=== PATIENT | female | born 1960 | race Caucasian/White ===

== ENCOUNTER 2019-03-14 10:55 | Emergency (ER) | payer OTHER ==
[2019-03-14 11:01] VITALS: BP 145/87; PULSE 68; TEMP 97.8; BMI 31.9
[2019-03-14] MEDS ORDERED: DIPHTH,PERTUSS(ACELL),TET 0.5 ML DISP.SYRIN IM ONE ×2 (11:19→11:20)
--- NOTE | 2019-03-14 11:26 | PDOC ---
History of Present Illness - General Chief Complaint: Wound Stated Complaint: RT THUMB INFECTION Time Seen by Provider: 03/14/19 11:10 - History of Present Illness Initial Comments: 03/14/19 11:21 58 y/o holli with a past medical history significant for hypertension presents for evaluation of right thumb swelling and pain 2 days. About 6 days ago she went to get her nails done since that time 2 days after her manicure she developed some swelling in her right thumb. No systemic symptoms Past History - Past Medical History Allergies/Adverse Reactions: Allergies Allergy/AdvReac Type Severity Reaction Status Date / Time No Known Allergies Allergy Verified 03/14/19 11:01 Home Medications: Ambulatory Orders Amlodipine Besylate [Norvasc -] 10 mg PO HS 03/14/19 Cephalexin [Keflex] 500 mg PO QID #40 capsule 03/14/19 Hydrochlorothiazide [Hctz -] 50 mg PO DAILY 03/14/19 Sulfamethoxazole/Trimethoprim [Bactrim Ds -] 1 tab PO BID #14 tablet 03/14/19 - Suicide/Smoking/Psychosocial Hx Smoking History: Never smoked Have you smoked in the past 12 months: No Information on smoking cessation initiated: No Hx Alcohol Use: No Drug/Substance Use Hx: No Review of Systems - Review of Systems Constitutional: No: Fever Musculoskeletal: Yes: See HPI *Physical Exam - Vital Signs Last Vital Signs Temp Pulse Resp BP Pulse Ox 97.8 F 68 16 145/87 100 03/14/19 10:58 03/14/19 10:58 03/14/19 10:58 03/14/19 10:58 03/14/19 10:58 - Physical Exam Comments: 03/14/19 11:22 Right thumb skin color and temperature are normal. There is mild swelling and tenderness at the proximal aspect of the nail fold. No pain with passive motion of the IPJ no gross sensory motor deficits no streaking erythema or axillary adenopathy. Neurovascularly intact. There is no induration fluctuance erythema or warmth Medical Decision Making - Medical Decision Making 03/14/19 11:22 Discussion with the patient about the treatment options. I do appreciate acute inflammation secondary from her manicure. Which may be irritated her subcutaneous tissue I do not appreciate infection. That said, a course of Bactrim and Keflex for [facility] and she will follow-up with hand surgery. She will hold off on antibiotics for the next day or 2 unless she feels her symptoms are getting worse. Follow-up with hand surgery in 1-2 days. *DC/Admit/Observation/Transfer Diagnosis at time of Disposition: Paronychia of finger of right hand - Discharge Dispostion Disposition: HOME Condition at time of disposition: Stable Decision to Admit order: No - Prescriptions Prescriptions: Cephalexin [Keflex] 500 mg PO QID #40 capsule Sulfamethoxazole/Trimethoprim [Bactrim Ds -] 1 tab PO BID #14 tablet - Referrals Referrals: Rick Moreland MD [Staff Physician] - - Patient Instructions Additional Instructions: Please hold off on the antibiotics but she feel your symptoms are getting worse. Return to the emergency room for further evaluation and follow-up with hand surgery without fail in 1-2 days for further evaluation and treatment options.Worsening of symptoms which should prompt her to start the antibiotics R fever or chills night sweats nausea, redness drainage swelling which is increasing in the area of her thumb increasing pain. When she start the antibiotics she did feel the need please finish the entire course as directed. - Post Discharge Activity
== END 2019-03-14 11:29 | disposition home or self-care (01) ==
LOC: JERFT 10:55
PROC: 3E0234Z Introduction of Serum, Toxoid and Vaccine into Muscle, Percutaneous Approach (ICD-10-PCS; principal; 2019-03-14)
DX: L03.011 Cellulitis of right finger (principal)
CPT/HCPCS: 90715; 99281-25

== ENCOUNTER 2019-03-22 08:49 | Emergency (ER) | payer OTHER ==
[2019-03-22 08:58] VITALS: BP 133/89; PULSE 74; TEMP 97.6; BMI 32.1
[2019-03-22] MEDS ORDERED: DEXAMETHASONE SOD PHOSPHATE 10 MG/1 ML VIAL IM ONE (09:30)
[2019-03-22] MEDS ORDERED: DEXAMETHASONE SOD PHOSPHATE 10 MG/1 ML VIAL ONE (09:39)
--- NOTE | 2019-03-22 09:51 | PDOC ---
History of Present Illness - General Chief Complaint: Allergic Reaction Stated Complaint: ALLERGIC REACTION Time Seen by Provider: 03/22/19 09:04 History Source: Patient Exam Limitations: No Limitations - History of Present Illness Initial Comments: 03/22/19 09:43 Source: Patient HPI: 58yo woman PMH asthma and HTN presenting with diffuse rash and puritis for 1.5 days. Patient reports she woke up Thursday with intense whole body itching and a raised rash. Denies subjective fevers but endorses feeling chilled as a result of warm painful skin. Patient was seen six days ago and given Bactrim and Keflex for a right thumb infection. Seen again after several days for incision and drainage of the thumb, continued on the antibiotics. On Thursday patient spent time by the pool and got a mild sunburn. Awoke this morning with mild lip swelling and decided to present to the ED. No difficulty breathing, wheezing, or shortness of breath. Denies new detergents , soaps, lotions, or other fragrances. Past History - Past Medical History Allergies/Adverse Reactions: Allergies Allergy/AdvReac Type Severity Reaction Status Date / Time No Known Allergies Allergy Verified 03/22/19 08:54 Home Medications: Ambulatory Orders Amlodipine Besylate [Norvasc -] 10 mg PO HS 03/14/19 Cephalexin [Keflex] 500 mg PO QID #40 capsule 03/14/19 Hydrochlorothiazide [Hctz -] 50 mg PO DAILY 03/14/19 Sulfamethoxazole/Trimethoprim [Bactrim Ds -] 1 tab PO BID #14 tablet 03/14/19 Oxycodone HCl/Acetaminophen [Percocet 5/325 -] 1 tab PO Q6H #40 tab MDD 5 Oxycodone HCl/Acetaminophen [Percocet 5/325 -] 1 tab PO Q6H 2 Days #8 tab MDD 4 03/16/19 Prednisone [Prednisone 50 MG TABLETS] 50 mg PO DAILY 5 Days #5 tablet 03/22/19 Asthma: Yes COPD: No HTN: Yes - Immunization History Immunization Up to Date: Yes - Suicide/Smoking/Psychosocial Hx Smoking History: Never smoked Have you smoked in the past 12 months: No Hx Alcohol Use: No Drug/Substance Use Hx: No Review of Systems - Review of Systems Able to Perform ROS?: Yes Is the patient limited Serbian proficient: No Constitutional: Yes: Chills. No: Fever Integumentary: Yes: See HPI, Change in Color, Pruritus, Rash *Physical Exam - Vital Signs Last Vital Signs Temp Pulse Resp BP Pulse Ox 97.6 F 74 18 133/89 99 03/22/19 08:54 03/22/19 08:54 03/22/19 08:54 03/22/19 08:54 03/22/19 08:54 - Physical Exam Comments: 03/22/19 09:52 Vitals reviewed, afebrile and hemodynamically stable GEN: WDWN woman, no acute distress, conversant, pleasant HEENT: EOMI, mild lip swelling, no mucosal lesions, MMM, NCAT Pulm: normal WOB, speaking full sentences, no wheezes appreciated Skin: diffuse, papular rash on erythematous base with underlying sunburn / hyperpigmentation Neuro: alert and oriented, MAEE, CN grossly intact Medical Decision Making - Medical Decision Making 03/22/19 11:01 58yo woman presenting with diffuse puritic rash in setting of recent keflex/ bactrim with sun exposure day preceding rash development. Most likely a hypersensitivity reaction to the sun with bactrim, also less likely a drug allergy to keflex vs bactrim, unlikely TENS / SJS given mucosal sparing and severity of reaction. -10 Decadron IM for symptoamtic relief -50mg Prednisone for 5 days to pharmacy Dispo: home *DC/Admit/Observation/Transfer Diagnosis at time of Disposition: Hypersensitivity Qualifiers: Encounter type: initial encounter Qualified Code(s): T78.40XA - Allergy, unspecified, initial encounter - Discharge Dispostion Disposition: HOME Condition at time of disposition: Improved Decision to Admit order: No - Prescriptions Prescriptions: Prednisone [Prednisone 50 MG TABLETS] 50 mg PO DAILY 5 Days #5 tablet - Referrals - Patient Instructions Printed Discharge Instructions: Photosensitivity (Alternative Therapy) Additional Instructions: Please use the steroids daily. Please use sunblock SPF 30 or higher with sensitive skin formulation. Please use topical steroids twice per day and topical Benadryl/ antihistamine as needed. Let Dr. Moreland know that you are stopping the antibiotics because of the rash in case he wants to change your regimen. Please return to the ED if you have new or worsening symptoms. - Post Discharge Activity
--- NOTE | 2019-03-22 09:56 | PDOC ---
Documentation entered by Carmita Monreal SCRIBE, acting as scribe for Talib Golden MD. Talib Golden MD: This documentation has been prepared by the neishaibangela, Carmita Monreal SCRIBE, under my direction and personally reviewed by me in its entirety. I confirm that the documentation accurately reflects all work, treatment, procedures, and medical decision making performed by me. Attending Attestation - Resident Resident Name: FreddySeth - ED Attending Attestation I have performed the following: I have examined & evaluated the patient, The case was reviewed & discussed with the resident, I agree w/resident's findings & plan, Exceptions are as noted - HPI HPI: 03/22/19 09:47 The patient is a 58 year old female with a significant past medical history of hypertension and asthma who presents to the emergency department with a rash that started 2 days ago. The patient states that she was recently placed on keflex and Bactrim 1 week ago for a finger infection. The patient states that 2 days ago she spent the day in the sun by her pool. The next morning, pt noticed an itchy red rash on her legs, as well as her arms. Today, the patient noted increased itchy rash spreading to her chest and back. She endorses taking Benadryl with minimal relief. Denies lip/tongue swelling. The patient denies any new soaps or detergents. She denies any fever, chills, nausea, vomiting, diarrhea, constipation or urinary symptoms. She denies any chest pain, shortness of breath, wheezing. The patient denies any other complaints. - Physicial Exam PE: 03/22/19 09:55 "GENERAL: Awake, alert, and fully oriented, in no acute distress. HEAD: No signs of trauma EYES: PERRLA, EOMI, sclera anicteric, conjunctiva clear ENT: Auricles normal inspection, hearing grossly normal, nares patent, oropharynx clear without exudates. Moist mucosa NECK: Nontender, no stepoffs, Normal ROM, supple, no lymphadenopathy, JVD, or masses LUNGS: Breath sounds equal, clear to auscultation bilaterally. No wheezes, and no crackles HEART: Regular rate and rhythm, normal S1 and S2, no murmurs, rubs or gallops ABDOMEN: Soft, nontender, normoactive bowel sounds. No guarding, no rebound. No masses EXTREMITIES: Normal range of motion, no edema. No clubbing or cyanosis. No cords, erythema, or tenderness NEUROLOGICAL: Cranial nerves II through XII intact. 5/5 strength and sensation in all extremities, Normal speech, normal gait, normal cerebellar function SKIN: erythematous, maculopapular rash to arms and legs with involvement of chest and back, sparing of areas covered by pt's underwear - Medical Decision Making 03/22/19 09:55 58 F with allergic reaction vs drug-induced photo-sensitivity. No evidence of airway involvement. No evidence of SJS/TENS. - Decadron 10mg IM - Will DC with short course of prednisone Pt is well appearing, with normal vitals. Clinically stable for DC at this time. I discussed the physical exam findings, ancillary test results and final diagnoses with the patient. I answered all of the patient's questions. The patient was satisfied with the care received and felt comfortable with the discharge plan and treatment plan. The patient agrees to follow up with the primary care physician within 24-72 hours.
== END 2019-03-22 10:15 | disposition home or self-care (01) ==
LOC: JER 08:49
PROC: 3E0233Z Introduction of Anti-inflammatory into Muscle, Percutaneous Approach (ICD-10-PCS; principal; 2019-03-22)
DX: L27.0 Generalized skin eruption due to drugs and medicaments taken internally (principal); T36.8X5A Adverse effect of other systemic antibiotics, initial encounter; Y92.038 Other place in apartment as the place of occurrence of the external cause
CPT/HCPCS: 99281-25; J1100